=== PATIENT | female | born 1975 | race Two or more races ===

== ENCOUNTER 2022-01-19 12:11 | Emergency (ER) | payer BC ==
[~2022-01-19] VITALS: Ht 157.5 cm; Wt 47.6 kg
[2022-01-19 12:12] VITALS: BP 108/61
[2022-01-19] MEDS ORDERED: ACE3T PO ×2 (15:26→16:50)
[2022-01-19] MEDS ORDERED: ONDA-144 PO (15:26)
[2022-01-19] MEDS ORDERED: ONDANSETRON ODT 4 MG TAB PO ONE (15:30)
[2022-01-19] MEDS ORDERED: ACETAMINOPHEN/CODEINE#3 (300/30mg) TAB PO ONE (15:30)
[2022-01-19] MEDS ORDERED: CYCL-837 PO (16:50)
== END 2022-01-19 15:53 | disposition home or self-care (01) ==
LOC: ER 12:11
DX: G43.909 Migraine, unspecified, not intractable, without status migrainosus (principal)
CPT/HCPCS: 70450; 99284; Q0162